=== PATIENT | male | born 1945 | race Two or more races ===

== ENCOUNTER 2018-05-13 14:38 | Emergency (ER) | payer OTHER ==
[~2018-05-13] VITALS: Ht 152.4 cm; Wt 64.4 kg
[~2018-05-13 14:38] MED LIST: CIPROFLOXACIN750 MG PO; CLONAZEPAM1 MG PO; COLACE100 MG PO; METHYLPRED4 MG/DOSE- PO; NEURONTIN800 MG PO; PERCOCET 5/3251 TAB PO
== END 2018-05-13 18:23 | disposition home or self-care (01) ==
LOC: ER 14:38
DX: M25.50 Pain in unspecified joint (principal)

== ENCOUNTER 2021-03-15 11:00 | Inpatient (IN) | payer OTHER ==
[~2021-03-15] VITALS: Ht 165.1 cm; Wt 63.5 kg
[2021-03-15] MEDS ORDERED: METHROTEXATE PO (13:52)
[2021-03-15] MEDS ORDERED: PREDNISONE PO (13:54)
[2021-03-15] MEDS ORDERED: FOLIC PO (13:54)
[2021-03-22] MEDS ORDERED: PREDNISONE2.5 MG (13:06)
[2021-03-22] MEDS ORDERED: RAMIPRIL5 MG (13:06)
[2021-03-22] MEDS ORDERED: METHOTREXATE2.5 MG (13:07)
[2021-03-22] MEDS ORDERED: GABAPENTIN300 M2 (13:07)
[2021-03-22] MEDS ORDERED: FOLIC ACID1 MG (13:07)
[2021-03-22] MEDS ORDERED: DICLOFENAC POTA50 MG (13:07)
[2021-03-22] MEDS ORDERED: COLACE100 MG PO (17:22)
[2021-03-22] MEDS ORDERED: PERCOCET 5-3251 EACH PO (17:22)
[2021-03-22] MEDS ORDERED: NEURONTIN800 MG PO (17:22)
[2021-03-22] MEDS ORDERED: MEDROLPACK PO (17:22)
[2021-03-22] MEDS ORDERED: BACTRIM DS TAB1 EACH PO (17:22)
[2021-03-22] MEDS ORDERED: DIAZEPAM5 MG PO (17:22)
[2021-03-23] MEDS ORDERED: ZOFRAN8 MG PO (07:43)
== END 2021-03-23 12:33 | disposition home or self-care (01) | DRG 455 ==
LOC: O/R 03-22 07:08 → PED 03-22 07:08 → SURH 03-22 11:00 → PED 03-22 20:55
PROVIDERS: ADMIT Orthopaedic Surgery Orthopaedic Surgery of the Spine; ATTEND Orthopaedic Surgery Orthopaedic Surgery of the Spine
PROC: 0SG10K1 Fusion of 2 or more Lumbar Vertebral Joints with Nonautologous Tissue Substitute, Posterior Approach, Posterior Column, Open Approach (ICD-10-PCS; 2021-03-22)
PROC: 07DR0ZZ Extraction of Iliac Bone Marrow, Open Approach (ICD-10-PCS; 2021-03-22)
PROC: 0SG10A0 Fusion of 2 or more Lumbar Vertebral Joints with Interbody Fusion Device, Anterior Approach, Anterior Column, Open Approach (ICD-10-PCS; principal; 2021-03-22 11:15)
DX: M48.062 Spinal stenosis, lumbar region with neurogenic claudication (principal); M41.56 Other secondary scoliosis, lumbar region

== ENCOUNTER 2022-06-16 08:32 | Outpatient (CLI) | payer OTHER ==
[~2022-06-16 08:32] MED LIST changes: +BACTRIM DS TAB1 EACH PO; +DIAZEPAM5 MG PO; +DICLOFENAC POTA50 MG; +FOLIC ACID1 MG; +FOLIC PO; +GABAPENTIN300 M2; +MEDROLPACK PO; +METHOTREXATE2.5 MG; +METHROTEXATE PO; +PERCOCET 5-3251 EACH PO; +PREDNISONE PO; +PREDNISONE2.5 MG; +RAMIPRIL5 MG; +ZOFRAN8 MG PO
== END 2022-06-16 08:41 | disposition home or self-care (01) ==
LOC: TOM 08:32
DX: K63.5 Polyp of colon (principal); R63.4 Abnormal weight loss; Z12.11 Encounter for screening for malignant neoplasm of colon

== ENCOUNTER 2023-04-21 10:32 | Inpatient (IN) | payer OTHER ==
[~2023-04-21] VITALS: Ht 165.1 cm; Wt 60.3 kg
[2023-04-24] MEDS ORDERED: GABAPENTIN400 MG (14:47)
[2023-04-24] MEDS ORDERED: DICLOFENAC SOD100 GM (14:47)
[2023-04-24] MEDS ORDERED: PERCOCET 5-3251 EACH PO (17:33)
[2023-04-24] MEDS ORDERED: MEDROLPACK PO (17:33)
[2023-04-24] MEDS ORDERED: BACTRIM DS TAB1 EACH PO (17:34)
[2023-04-24] MEDS ORDERED: COLACE100 MG PO (17:35)
[2023-04-24] MEDS ORDERED: NEURONTIN800 MG PO (17:35)
== END 2023-04-25 13:40 | disposition home or self-care (01) | DRG 455 ==
LOC: O/R 04-24 06:33 → SURG 04-24 11:15 → SURH 04-24 19:29
PROVIDERS: ADMIT Orthopaedic Surgery Orthopaedic Surgery of the Spine; ATTEND Orthopaedic Surgery Orthopaedic Surgery of the Spine
PROC: 0SG3071 Fusion of Lumbosacral Joint with Autologous Tissue Substitute, Posterior Approach, Posterior Column, Open Approach (ICD-10-PCS; 2023-04-24)
PROC: 0ST40ZZ Resection of Lumbosacral Disc, Open Approach (ICD-10-PCS; 2023-04-24)
PROC: 0QP004Z Removal of Internal Fixation Device from Lumbar Vertebra, Open Approach (ICD-10-PCS; 2023-04-24)
PROC: 07DR0ZZ Extraction of Iliac Bone Marrow, Open Approach (ICD-10-PCS; 2023-04-24)
PROC: XRGD0R7 Fusion of Lumbosacral Joint using Custom-Made Anatomically Designed Interbody Fusion Device, Open Approach, New Technology Group 7 (ICD-10-PCS; principal; 2023-04-24 15:15)
DX: M43.17 Spondylolisthesis, lumbosacral region (principal); M47.27 Other spondylosis with radiculopathy, lumbosacral region; M48.07 Spinal stenosis, lumbosacral region; M54.59 Other low back pain; R26.89 Other abnormalities of gait and mobility